=== PATIENT | female | born 1955 ===

== ENCOUNTER 2019-12-15 14:30 | Emergency (ER) | payer MEDICARE, MEDICAID ==
[2019-12-15] MEDS ORDERED: Amlodipine 5 MG TAB ONE (14:43)
[2019-12-15] MEDS ORDERED: Furosemide 40 MG TAB ONE (14:43)
[2019-12-15] MEDS ORDERED: Ibuprofen 200 MG TAB ONE (15:15)
== END 2019-12-15 16:37 | disposition home or self-care (01) ==
LOC: ERS 14:30
DX: I10 Essential (primary) hypertension (principal); K21.9 Gastro-esophageal reflux disease without esophagitis; K74.60 Unspecified cirrhosis of liver; F31.9 Bipolar disorder, unspecified; F41.9 Anxiety disorder, unspecified; F17.210 Nicotine dependence, cigarettes, uncomplicated; Z79.899 Other long term (current) drug therapy
CPT/HCPCS: 99283